=== PATIENT | male | born 1995 | race Caucasian/White ===

== ENCOUNTER 2017-12-18 17:19 | Emergency (ER) | payer OTHER ==
[~2017-12-18] VITALS: Ht 195.6 cm; Wt 108.9 kg
--- NOTE | 2017-12-18 17:21 | NUR ---
PT DOV FROM HOME TO ER BED 01. APPEARS ANXIOUS, DIAPHORETIC AND HYPERTENSIVE LINEN SORTER. PT STATES HE IS TRAYING TO WEAN OF HIS CLONIDINE AND THINKS HE IS HAVING WIDRAWAL TO IT. PT GOWNED AND PLACED ON MONITOR. AWAITING MD HASTINGS.
--- NOTE | 2017-12-18 17:26 | NUR ---
ROSALBA MANAGER STUDY AT BEDSIDE FOR EVAL.
[2017-12-18] MEDS ORDERED: LORAZEPAM INJ 2 MG/ML VIAL ONE ×2 (17:30→18:19)
[2017-12-18] MEDS ORDERED: LORAZEPAM INJ 2 MG/ML VIAL IV ONE ×2 (17:30→18:30)
[2017-12-18] MEDS ORDERED: IV NS 0.9% 500 ML BAG IV ONE (17:30)
[2017-12-18 17:43] LABS: BASOPHILS # (AUTO) 0.2 /CMM (0.0-0.2); BASOPHILS % (AUTO) 1.6 % (0.0-2.0); EOSINOPHILS % (AUTO) 1.5 % (0.0-6.0); HEMATOCRIT 52 % (39-51); HEMOGLOBIN 17.5 g/dL (13.5-17.5); LYMPHOCYTES # (AUTO) 3.8 /CMM (0.8-4.8); LYMPHOCYTES % (AUTO) 36.4 % (20.0-44.0); MEAN CORPUSCULAR HGB CONC 34 g/dl (31.0-36.0); MEAN CORPUSCULAR VOLUME 88 fL (80-96); MONOCYTES # (AUTO) 0.7 /CMM (0.1-1.30); MONOCYTES % (AUTO) 6.9 % (2.0-12.0); NEUTROPHILS # (AUTO) 5.5 /CMM (1.8-8.9); NEUTROPHILS % (AUTO) 53.6 % (43.0-81.0); PLATELET COUNT (AUTO) 279 /CMM (150-450); RDW COEFFICIENT OF VARIATION 11.9 (11.5-15.0); RED BLOOD CELL COUNT(AUTO) 5.87 MIL/uL (4.5-6.0); WHITE BLOOD COUNT (AUTO) 10.4 K/uL (4.3-11.0)
--- NOTE | 2017-12-18 17:44 | NUR ---
RADIOLOGY AT BEDSIDE FOR CHEST XRAY.
[2017-12-18 17:53] LABS: CALCIUM, SERUM 8.9 mg/dL (8.5-10.1); CARBON DIOXIDE 28 mmol/L (21-32); CHLORIDE 102 mmol/L (98-107); CREATININE 0.9 mg/dL (0.6-1.3); GLUCOSE 93 mg/dL (74-106); POTASSIUM 3.9 mmol/L (3.5-5.1); SODIUM SERUM 137 mmol/L (136-145); UREA NITROGEN, BLOOD 18 mg/dL (7-18)
[2017-12-18 17:57] LABS: INR 0.87 (0.85-1.15)
[2017-12-18 17:58] LABS: ALANINE AMINOTRANSFERASE 58 U/L (12-78); ALBUMIN 4.1 g/dL (3.4-5.0); ALKALINE PHOSPHATASE 82 U/L (46-116); ASPARTATE AMINOTRANSFERASE 26 U/L (15-37); BILIRUBIN,TOTAL 0.3 mg/dL (0.2-1.0); TOTAL PROTEIN, SERUM 7.4 g/dL (6.4-8.2)
[2017-12-18 18:01] LABS: TROPONIN I < 0.017 ng/mL (0.00-0.056)
--- NOTE | 2017-12-18 18:24 | NUR ---
PT STILL APPEARS ANXIOUS. ROSALBA PA AWARE. VERBAL ORDER FOR ATIVAN 2MG IVP GIVEN PER ROSALBA SUP[employer]S MANAGER VERBAL ORDER.
[2017-12-18] MEDS ORDERED: ALPRAZOLAM 0.5 MG TABLET PO ONE (19:00)
[2017-12-18] MEDS ORDERED: ALPRAZOLAM 0.5 MG TABLET ONE (19:01)
--- NOTE | 2017-12-18 19:03 | NUR ---
CALLED [facility] [phone]
--- NOTE | 2017-12-18 19:08 | NUR ---
REPORT TO GATITO TREJO FOR BARBARA.
--- NOTE | 2017-12-18 19:16 | NUR ---
RECEIVED REPORT FROM MAYA MENDOZA FOR BARBARA. PT RESTING IN BED WITH NO S/S OF DISTRESS NOTED. WILL CONTINUE TO MONITOR.
--- NOTE | 2017-12-18 19:56 | NUR ---
NURSING SUP MADE AWARE OF REQUEST FOR TELE BED
--- NOTE | 2017-12-18 19:56 | NUR ---
CALLED [facility], DR CROSS PAGED
--- NOTE | 2017-12-18 20:14 | NUR ---
CALLED [facility] FOR FOLLOW UP, PAGED DR CROSS AGAIN
--- NOTE | 2017-12-18 20:26 | NUR ---
ADMIT BED [phone] TELE
[2017-12-18 20:42] VITALS: BP 146/99
--- NOTE | 2017-12-18 20:42 | NUR ---
REPORT GIVEN TO HUGO NIX FOR BARBARA
--- NOTE | 2017-12-18 20:51 | NUR ---
Patient does not wish to proceed with medical care recommended by JOHN Jones and DR. Espinoza. Patient given information related to possible complications, up to and including , which could occur as a result of leaving the hospital at this time. Patient verbalizes understanding of risks involved due to leaving against medical advice. Patient has signed AMA form. No S/S of distress noted at this time. Pt ambulating with steady gait noted.
[2017-12-18 21:03] LABS: THYROID STIMULATING HORMONE 1.454 uIU/mL (0.358-3.74)
== END 2017-12-18 21:07 | disposition left against medical advice (07) ==
LOC: ER 17:22 → UNDOADMIN 20:31 → TELE 20:31 → ER 20:44
DX: F41.9 Anxiety disorder, unspecified (principal); I10 Essential (primary) hypertension; F90.9 Attention-deficit hyperactivity disorder, unspecified type; Z88.0 Allergy status to penicillin
CPT/HCPCS: 36415; 71045-TC; 80048-TC; 80076-TC; 80305; 83605-TC; 84443-TC; 84484-TC; 85025-TC; 85730-TC; 87081-TC; A4606; J2060; J7040; Z7610